=== PATIENT | male | born 1980 | race Two or more races ===

== ENCOUNTER 2018-02-16 23:44 | Emergency (ER) | payer SELFPAY ==
[~2018-02-16] VITALS: Ht 177.8 cm; Wt 145.0 kg
[2018-02-17] MEDS ORDERED: IPRATROPIUM BROMIDE (0.02%) 0.5MG/2.5ML NEB HHN STA (00:04)
[2018-02-17] MEDS ORDERED: ALBUTEROL (0.083%) 2.5MG/3ML NEB HHN STA (00:04)
[2018-02-17 00:18] VITALS: BP 150/94
== END 2018-02-17 02:35 | disposition home or self-care (01) ==
LOC: ER 23:44
DX: J45.901 Unspecified asthma with (acute) exacerbation (principal); R07.89 Other chest pain; M79.604 Pain in right leg; V43.52XA Car driver injured in collision with other type car in traffic accident, initial encounter; I10 Essential (primary) hypertension; Y93.89 Activity, other specified; Y92.488 Other paved roadways as the place of occurrence of the external cause; E66.01 Morbid (severe) obesity due to excess calories; Z68.42 Body mass index [BMI] 45.0-49.9, adult
CPT/HCPCS: 71045; 94640; 99283; J7611